=== PATIENT | male | born 1955 | race Caucasian/White ===

== ENCOUNTER 2019-06-05 11:16 | Emergency (ER) | payer SELFPAY ==
[~2019-06-05] VITALS: Ht 182.9 cm; Wt 91.7 kg
[2019-06-05 11:16] VITALS: BP 60/30
[~2019-06-05 11:16] MED LIST: FURO-69 PO; LEVE100020 PO; METO50TA6 PO; POTA10CA PO; SPIR50TA4 PO; WARF-31 PO; WARF-78 PO; mevacor PO
[2019-06-05] MEDS ORDERED: ONDANSETRON PF 4 MG/2 ML VIAL. IVP ONE (11:30)
[2019-06-05] MEDS ORDERED: PERMETHRIN 5% TOPICAL CREAM 60GM TUBE. TP ONE (12:15)
[2019-06-05 12:16] LABS: BASO # 0.1 x10^3/uL (0.0-0.2); BASO % 1 % (0-3); EOS % 0 % (0-3); HEMATOCRIT 39.9 % (39.0-53.0); HEMOGLOBIN 13.5 g/dL (13.0-17.5); LYMPH # 0.5 x10^3/uL (1.0-4.8); LYMPH % 4 % (24-48); MEAN CORPUSCULAR HEMOGLOBIN 36 pg (25-35); MEAN CORPUSCULAR HGB CONC 34 g/dL (31-37); MEAN CORPUSCULAR VOLUME 107 fL (79-100); MONO # 1.3 x10^3/uL (0.0-1.1); MONO % 9 % (0-9); NEUT # 12.7 x10^3uL (1.8-7.7); NEUT % 87 % (31-73); PLATELET COUNT 174 x10^3/uL (140-400); RED BLOOD COUNT 3.72 x10^6/uL (4.30-5.70); RED CELL DISTRIBUTION WIDTH 15.6 % (11.5-14.5); WHITE BLOOD COUNT 14.6 x10^3/uL (4.0-11.0)
[2019-06-05 12:20] LABS: CALCIUM 8.8 mg/dL (8.5-10.1); CREATININE 1.5 mg/dL (0.7-1.3); GFR 47.4; POTASSIUM 3.9 mmol/L (3.5-5.1)
[2019-06-05 12:27] LABS: ALBUMIN/GLOBULIN RATIO 0.4 (1.0-1.7); TOTAL PROTEIN 6.5 g/dL (6.4-8.2)
[2019-06-05 12:28] LABS: TOTAL BILIRUBIN 5.6 mg/dL (0.2-1.0)
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
[2019-06-05 13:06] LABS: CLARITY,URINE CLOUDY; COLOR,URINE AMBER; GLUCOSE,URINE NEG (NEG)
[2019-06-05 13:06] LABS: BARBITURATES NEG (NEG); BENZODIAZEPINES NEG (NEG); CANNABINOIDS NEG (NEG); COCAINE NEG (NEG); METHADONE NEG (NEG); OPIATES NEG (NEG); PHENCYCLIDINE NEG (NEG)
[2019-06-05 13:10] LABS: AMPHETAMINE/METHAMPHETAMINE NEG (NEG)
[2019-06-05 13:12] LABS: BILIRUBIN,URINE MOD (NEG); NITRITE,URINE NEG (NEG)
[2019-06-05 13:13] LABS: AMORPHOUS SEDIMENT,UR PRESENT /HPF; BACTERIA,URINE MANY /HPF (0-FEW); SQUAMOUS EPITHELIAL CELL,UR OCC /LPF; WBC,URINE >40 /HPF (0-4)
[2019-06-05] MEDS ORDERED: IV NORMAL SALINE 1,000ML 1,000 ML IV ONE ×3 (13:15→18:00)
[2019-06-05] MEDS ORDERED: PIPERACILLIN/TAZOBACTAM 3.375 GM in IV NORMAL SALINE 50ML 50 ML IV ONE (14:30)
[2019-06-05] MEDS ORDERED: IV NORMAL SALINE 50ML 50 ML ONE (14:39)
[2019-06-05] MEDS ORDERED: PIPERACILLIN/TAZOBACTAM 3.375 GM VIAL IV ONE (14:40)
[2019-06-05] MEDS ORDERED: IV NORMAL SALINE 1,000ML 1,000 ML IV SCH (15:00)
== END 2019-06-05 17:28 | disposition short-term general hospital (02) ==
LOC: ER 11:16 → EEVIPCON 11:16 → ER 17:28
DX: S61.412A Laceration without foreign body of left hand, initial encounter (principal); S61.411A Laceration without foreign body of right hand, initial encounter; S81.812A Laceration without foreign body, left lower leg, initial encounter; S81.811A Laceration without foreign body, right lower leg, initial encounter; A41.9 Sepsis, unspecified organism; R65.21 Severe sepsis with septic shock; K72.90 Hepatic failure, unspecified without coma; T74.91XA Unspecified adult maltreatment, confirmed, initial encounter; I95.9 Hypotension, unspecified; R17 Unspecified jaundice; M24.542 Contracture, left hand; F41.9 Anxiety disorder, unspecified; I10 Essential (primary) hypertension; Z86.73 Personal history of transient ischemic attack (TIA), and cerebral infarction without residual deficits; Z87.891 Personal history of nicotine dependence; Z91.041 Radiographic dye allergy status; W06.XXXA Fall from bed, initial encounter; Y93.89 Activity, other specified; Y92.098 Other place in other non-institutional residence as the place of occurrence of the external cause; Y99.8 Other external cause status
CPT/HCPCS: 36415; 51702; 80053; 80307; 81001; 82140; 83605; 85025; 85610; 85730; 87040; 87086; 96360; 96365; 99291; G0480; J2543; 87186; J7030